=== PATIENT | female | born 1945 | race American Indian/Alaskan Native ===

== ENCOUNTER 2018-09-27 09:26 | Outpatient (CLI) | payer MEDICARE, OTHER ==
--- NOTE | 2018-09-27 13:16 | Mammography Report ---
BONE DEXA:09/27/18 09:26:00 CLINICAL: Postmenopausal. No comparison. TECHNIQUE: Two site bone DEXA performed on an Hologic scanner. FINDINGS: The average BMD of the lumbar spine L1 and L2 is 1.001g/cm squared with a T-score of -1.4 and a Z-score of 1.1. Moderate dextroscoliosis centered at L3-4. The L3 and L4 vertebrae were excluded as outliers because of endplate sclerosis. The average BMD of the left hip is 0.910g/cm squared with a T-score of -0.8 and a Z-score of +0.4. IMPRESSION: WHO classification: Osteopenia with increased fracture risk based on both spine and left hip measurements. RECOMMENDATION: Clinical correlation and routine screening. DEFINITIONS: BMD = Bone Mineral Density T-score = BMD related to mean peak bone mass of young adult (mean expressed in Standard Deviation) Z-score = Age matched BMD expressed in SD World Health Organization (WHO) Diagnostic Criteria Normal T-score > -1 SD Osteopenia T-score between -1 and -2.4 SD Osteoporosis T-score -2.5 SD or below NOTE: BMD is not the only risk factor for fracture. One should also consider factors such as the patient's age, risk of falling, previous osteoporotic fracture, family history of osteoporotic fractures, current smoker, and low body weight. Z-scores are not calculated if >80 years of age.
--- NOTE | 2018-09-27 13:24 | Mammography Report ---
BILATERAL DIGITAL SCREENING MAMMOGRAM with CAD: 09/27/18 09:26:00 CLINICAL: Routine screening. COMPARISON:None. She has not had a mammogram in a long time. FINDINGS: The breasts are heterogeneously dense, which may tear small masses. Left asymmetries on MLO and exaggerated CC views require additional imaging.No architectural distortion or suspicious calcifications.The right breast is negative. IMPRESSION: Left asymmetries requiring further workup. BI-RADS CATEGORY: 0 -- Additional Imaging Evaluation Required RECOMMENDATION: Recall for left , spot magnification exaggerated CC and MLO views and left breast ultrasound if needed. ACR BI-RADS MAMMOGRAPHIC CODES: 0 = Needs additional imaging evaluation; 1 = Negative; 2 = Benign; 3 = Probably benign; 4 = Suspicious; 5 = Malignant; 6 = Known biopsy-proven malignancy COMMENT: 1. Dense breast tissue, i.e., adenosis, fibrocystic changes, etc., may obscure an underlying neoplasm. 2. Approximately 10% of cancers are not detected with mammography. 3. A negative mammography report should not delay biopsy if a clinically suspicious mass is present. COMMENT: Patient follow-up letters are generated via our [employer] application.
== END 2018-09-27 09:27 | disposition home or self-care (01) ==
LOC: SPVWC 09:26
PROVIDERS: ATTEND Family Medicine
DX: Z12.31 Encounter for screening mammogram for malignant neoplasm of breast (principal); Z13.820 Encounter for screening for osteoporosis; M85.88 Other specified disorders of bone density and structure, other site; Z78.0 Asymptomatic menopausal state
CPT/HCPCS: 77067; 77080

== ENCOUNTER 2019-05-16 09:23 | Outpatient (CLI) | payer MEDICARE, OTHER ==
--- NOTE | 2019-05-16 11:05 | Ultrasound Report ---
LEFT DIGITAL DIAGNOSTIC MAMMOGRAM WITH CAD -- 05/16/2019 LEFT COMPLETE BREAST ULTRASOUND INDICATION: Asymmetries on screening mammogram. TECHNIQUE: Digital left mammographic imaging was performed. Spot compression and magnification views were obtained. This examination was interpreted with the benefit of Computer-Aided Detection (CAD) adonay marie. COMPARISON: 09/27/2018 mammogram. FINDINGS: Breast Density: The breast is heterogeneously dense, which may obscure small masses. MAMMOGRAPHIC FINDINGS: Partial effacement of previously identified asymmetries. ULTRASOUND FINDINGS: Complete sonographic evaluation of all 4 quadrants and retroareolar region was p erformed. Ultrasound demonstrates a solid slightly irregular hypoechoic mass at 1:30 o'clock 2 cm f rom the nipple. It measures 4 x 5 x 4 mm and has no mammographic correlate. It does produce shadowing . No other mass and no cysts. IMPRESSION: A suspicious 5 mm left breast mass at 1:30 o'clock 2 cm from the nipple. Recommend ultras ound guided needle biopsy to exclude malignancy. Follow up recommendation: Biopsy I discussed the findings and the recommendation for needle biopsy with the patient at the time of the exam. BI-RADS Category 4: Suspicious for Malignancy. A "normal" or negative report should not discourage follow up or biopsy of a clinically significant f inding. A written summary of these findings will be mailed to the patient. The patient will be entered into a mammography reporting system which will generate a reminder letter for the patient's next appointmen t at the appropriate interval. According to the [employer], yearly mammograms are recommended starting at age 40 and continuing as long as a woman is in good health. Breast MRI is recommended for women with an dona roximately 20-25% or greater lifetime risk of breast cancer, including women with a strong family his tory of breast or ovarian cancer and women who have been treated for Hodgkin's disease. Signer Name: Juan Alberto Gonzalez MD Signed: 05/16/2019 11:01 AM Workstation Name: [id number]
== END 2019-05-16 09:24 | disposition home or self-care (01) ==
LOC: SPVWC 09:23
PROVIDERS: ATTEND Family Medicine
DX: R92.8 Other abnormal and inconclusive findings on diagnostic imaging of breast (principal)

== ENCOUNTER 2019-06-13 08:54 | Outpatient (CLI) | payer MEDICARE, OTHER ==
--- NOTE | 2019-06-13 11:20 | Ultrasound Report ---
ULTRASOUND-GUIDED NEEDLE CORE BIOPSY LEFT BREAST WITH CLIP PLACEMENT CLINICAL: Left breast mass at 1:30 o'clock 2 cm from the nipple FINDINGS: The procedure was explained to the patient and informed consent was obtained. Ultrasound demonstrated the previously identified shadowing mass. I marked the breast with a felt tip marker and a timeout was called. The skin was prepped with Chloro -Prep and anesthetized with 1% lidocaine. Needle core biopsy was performed through small dermatotomy using ultrasound guidance, 2% lidocaine wi th epinephrine for deep anesthesia and a 14-gauge Achieve biopsy device. 5 cores were obtained and pl aced in formalin. A clip was deployed within the lesion. The patient tolerated the procedure well and there were no apparent complications. Hemostasis was ach ieved with minimal effort and a sterile dressing was applied. A post procedure mammogram demonstrated concordant clip deployment. She left the department in good c ondition and was given instructions for wound care and follow-up. IMPRESSION: Uncomplicated ultrasound guided needle core biopsy with clip placement left breast. Signer Name: Juan Alberto Gonzalez MD Signed: 06/13/2019 11:16 AM Workstation Name: [id number]
--- NOTE | 2019-06-13 14:07 | Mammography Report ---
LEFT DIGITAL DIAGNOSTIC MAMMOGRAM CLINICAL: For clip placement after ultrasound guided needle biopsy. COMPARISON: 05/16/2019 FINDINGS: A biopsy clip is identified in the upper outer quadrant and correlates with the ultrasound mass. IMPRESSION: Concordant clip deployment. Signer Name: Juan Alberto Gonzalez MD Signed: 06/13/2019 2:03 PM Workstation Name: [id number]
== END 2019-06-13 08:55 | disposition home or self-care (01) ==
LOC: SPVWC 08:54
PROVIDERS: ATTEND Family Medicine
DX: N63.21 Unspecified lump in the left breast, upper outer quadrant (principal); D24.2 Benign neoplasm of left breast; R92.8 Other abnormal and inconclusive findings on diagnostic imaging of breast
CPT/HCPCS: 19083; 77065; 88305; A4648